=== PATIENT | female | born 1945 | race Caucasian/White ===

== ENCOUNTER → 2020-12-18 | Outpatient (CLI) | payer MEDICARE, BC ==
[~2020-12-18] MED LIST: AMLO2.5T5 PO; ASPI81TA45 PO; BIOT25005 PO; CELE200C PO; CHOL10003 PO; CINSULIN PO; FEXO180T15 PO; FISH1CAP PO; GABA-826 PO; HYDR25TA6 PO; LEVO100T74 PO; LOSA100T14 PO; MULT-449 PO; PRAV40TA2 PO; TRAM50TA2 PO
[2020-12-18 10:32] LABS: BASOPHILS % (AUTO) 1 % (0-1); EOSINOPHILS % (AUTO) 4 % (1-7); LYMPHOCYTES % (AUTO) 31 % (22-44); MEAN CORPUSCULAR HEMOGLOBIN 31.5 pg (27.0-34.8); MEAN CORPUSCULAR HGB CONC 33.4 g/dL (32.4-35.8); MEAN PLATELET VOLUME 7.9 fL (7.4-10.4); MONOCYTES % (AUTO) 9 % (2-9); NEUTROPHILS % (AUTO) 56 % (42-75); PLATELET COUNT 222 x10^3/uL (130-400); RED BLOOD COUNT 4.82 x10^6/uL (3.82-5.3); RED CELL DISTRIBUTION WIDTH 14.2 % (9.6-15.2)
[2020-12-18 10:41] LABS: INTERNATIONAL NORMALIZED RATIO 0.93 (0.93-1.1); MD NO; PROTHROMBIN TIME 9.8 Seconds (9.6-11.5)
[2020-12-18 10:51] LABS: MICROSCOPIC NOT IND
[2020-12-18 12:23] LABS: ALANINE AMINOTRANSFERASE 35 U/L (12-78); ALBUMIN 4.1 g/dL (3.4-5.0); ANION GAP 4 mmol/L (5-15); CALCIUM 8.8 mg/dL (8.5-10.1); CHLORIDE 105 mmol/L (98-107); CREATININE 0.92 mg/dL (0.55-1.02)
[2020-12-18 12:25] LABS: ALKALINE PHOSPHATASE 108 U/L (45-117); BILIRUBIN,TOTAL 0.7 mg/dL (0.2-1.0); TOTAL PROTEIN 8.1 g/dL (6.4-8.2)
== END | disposition home or self-care (01) ==
LOC: STAR 09:20
PROVIDERS: ATTEND Neurological Surgery
DX: Z01.812 Encounter for preprocedural laboratory examination (principal); Z20.822 Contact with and (suspected) exposure to COVID-19; Z01.811 Encounter for preprocedural respiratory examination; Z01.810 Encounter for preprocedural cardiovascular examination; R82.90 Unspecified abnormal findings in urine; R94.31 Abnormal electrocardiogram [ECG] [EKG]; R79.1 Abnormal coagulation profile; M48.061 Spinal stenosis, lumbar region without neurogenic claudication; M54.17 Radiculopathy, lumbosacral region; M43.16 Spondylolisthesis, lumbar region
CPT/HCPCS: 36415; 71046; 80053; 81003; 85025; 85610; 85730; 93005

== ENCOUNTER → 2021-01-01 | Outpatient (CLI) | payer MEDICARE, BC | END | disposition home or self-care (01) | LOC: STAR 09:18 | PROVIDERS: ATTEND Anesthesiology | DX: Z20.822 Contact with and (suspected) exposure to COVID-19 (principal) | CPT/HCPCS: U0003 ==

== ENCOUNTER 2021-01-07 06:45 | Inpatient (IN) | payer MEDICARE, BC ==
[~2021-01-07] VITALS: Ht 157.5 cm; Wt 90.5 kg
[~2021-01-07 06:45] MED LIST changes: +BACITRACIN 50,000 UNIT ONE; +BUPIVACAINE/PF 0.5% ONE; +VANCOMYCIN 1,000 MG ONE
[2021-01-07] MEDS ORDERED: CHLORHEXIDINE 15 ML UDC ONE (07:27)
[2021-01-07] MEDS ORDERED: CHLORHEXIDINE 15 ML UDC PO ONE (07:30)
[2021-01-07] MEDS ORDERED: FENTANYL PF 250 MCG/5ML ONE ×2 (07:44→09:13)
[2021-01-07] MEDS ORDERED: AMIT50TA PO (07:52)
[2021-01-07] MEDS ORDERED: FENTANYL PF 100 MCG/2ML IV PRN (08:30)
[2021-01-07] MEDS ORDERED: LACTATED RINGERS 1,000 ML IV SCH (08:30)
[2021-01-07] MEDS ORDERED: hydrALAzine 20 MG/ML, 1ML IV PRN (08:30)
[2021-01-07] MEDS ORDERED: HALOPERIDOL 5 MG/ML IV PRN (08:30)
[2021-01-07] MEDS ORDERED: OXYcodone 5 MG/5 ML ORAL.SOL UDC PO PRN (08:30)
[2021-01-07] MEDS ORDERED: LIDOCAINE-MPF 1%, 2ML INFIL ONE (08:30)
[2021-01-07] MEDS ORDERED: MEPERIDINE/PF 25MG/0.5ML IVPush PRN (08:30)
[2021-01-07] MEDS ORDERED: PROMETHAZINE 25 MG/ML, 1ML IVPush PRN (08:30)
[2021-01-07] MEDS ORDERED: LABETALOL 5MG/ML, 20ML IV PRN (08:30)
[2021-01-07] MEDS ORDERED: morphine SULFATE 10 MG/ML, 1ML IVPush PRN (08:30)
[2021-01-07] MEDS ORDERED: ACETAMINOPHEN 325 MG TABLET PO PRN (08:30)
[2021-01-07] MEDS ORDERED: ONDANSETRON 2MG/ML, 2ML ONE (09:13)
[2021-01-07] MEDS ORDERED: CEFAZOLIN 1,000 MG ONE (09:13)
[2021-01-07] MEDS ORDERED: PROPOFOL 10 MG/ML, 20ML ONE (09:13)
[2021-01-07] MEDS ORDERED: ROCURONIUM 10MG/ML,5ML ONE (09:13)
[2021-01-07] MEDS ORDERED: GLYCOPYRROLATE 0.2MG/1ML, 5ML ONE (09:13)
[2021-01-07] MEDS ORDERED: DEXAMETHASONE 4 MG/ML, 1ML ONE (09:13)
[2021-01-07] MEDS ORDERED: NEOSTIGMINE 1 MG/ML, 10ML ONE (09:13)
[2021-01-07] MEDS ORDERED: FENTANYL PF 100 MCG/2ML ONE (09:43)
[2021-01-07] MEDS ORDERED: ONDANSETRON 2MG/ML, 2ML IVPush PRN (10:30)
[2021-01-07] MEDS ORDERED: METHOCARBAMOL 1,000 MG in DEXTROSE 5% 100 ML IV ONE (10:30)
[2021-01-07] MEDS ORDERED: LORazepam 1MG TABLET PO PRN (10:30)
[2021-01-07] MEDS ORDERED: DIPHENHYDRAMINE 50 MG CAPSULE PO PRN (10:30)
[2021-01-07] MEDS ORDERED: OXYcodone/APAP 5/325MG TABLET PO PRN (10:30)
[2021-01-07] MEDS ORDERED: BISACODYL 10 MG SUPP PR PRN (10:30)
[2021-01-07] MEDS ORDERED: PHARMACY MAY ADJ FOR RENAL FX MC PRN (10:30)
[2021-01-07] MEDS ORDERED: MAGNESIUM HYDROXIDE 8%, 30ML UDC PO PRN (10:30)
[2021-01-07] MEDS ORDERED: DIPHENHYDRAMINE 50 MG/ML, 1ML IVPush PRN (10:30)
[2021-01-07] MEDS ORDERED: DIPHENHYDRAMINE 50 MG/ML, 1ML IM PRN (10:30)
[2021-01-07] MEDS ORDERED: LABETALOL 5MG/ML, 20ML IVPush PRN (10:30)
[2021-01-07] MEDS ORDERED: OXYcodone 5 MG/5 ML ORAL.SOL UDC ONE (10:40)
[2021-01-07] MEDS ORDERED: HYDROmorphone 1 MG/ML, 1ML INJ ONE (10:40)
[2021-01-07] MEDS: HYDROmorphone 1 MG/ML, 1ML INJ IVPush PRN ×3 (10:45→11:30)
[2021-01-07 12:40] VITALS: BP 136/75
[2021-01-07] MEDS: HYDROmorphone 2MG TABLET PO PRN ×2 (13:42→17:43)
[2021-01-07] MEDS: CEFAZOLIN PMX 1GM/50ML 50 ML IVPB SCH (17:03)
[2021-01-07] MEDS: NS + 20MEQ KCL 1,000 ML IV SCH (17:03)
[2021-01-07 18:55] VITALS: BP 149/87
[2021-01-07] MEDS: AMITRIPTYLINE 50 MG TABLET PO SCH (20:24)
[2021-01-07] MEDS: AMLODIPINE 2.5 MG TABLET PO SCH (20:24)
[2021-01-07] MEDS: PRAVASTATIN 40 MG TABLET PO SCH (20:25)
[2021-01-07] MEDS: HYDROcodone/APAP 5/325 TABLET PO PRN (20:25)
[2021-01-08 00:12] VITALS: BP 146/83
[2021-01-08] MEDS: CEFAZOLIN PMX 1GM/50ML 50 ML IVPB SCH ×2 (00:36→16:59)
[2021-01-08] MEDS: HYDROcodone/APAP 5/325 TABLET PO PRN (00:40)
[2021-01-08] MEDS: NS + 20MEQ KCL 1,000 ML IV SCH ×2 (02:16→14:34)
[2021-01-08 04:11] VITALS: BP 143/81
[2021-01-08 05:47] LABS: BASOPHILS % (AUTO) 0 % (0-1); EOSINOPHILS % (AUTO) 0 % (1-7); LYMPHOCYTES % (AUTO) 13 % (22-44); MEAN CORPUSCULAR HEMOGLOBIN 31.6 pg (27.0-34.8); MEAN CORPUSCULAR HGB CONC 33.9 g/dL (32.4-35.8); MEAN PLATELET VOLUME 7.8 fL (7.4-10.4); MONOCYTES % (AUTO) 9 % (2-9); NEUTROPHILS % (AUTO) 78 % (42-75); PLATELET COUNT 194 x10^3/uL (130-400); RED BLOOD COUNT 4.02 x10^6/uL (3.82-5.3); RED CELL DISTRIBUTION WIDTH 13.9 % (9.6-15.2)
[2021-01-08 05:57] LABS: MD NO
[2021-01-08 06:03] LABS: ALBUMIN 3.1 g/dL (3.4-5.0); ANION GAP 4 mmol/L (5-15); CALCIUM 8.2 mg/dL (8.5-10.1); CHLORIDE 108 mmol/L (98-107)
[2021-01-08] MEDS ORDERED: VANCOMYCIN 1,000 MG ONE (06:19)
[2021-01-08] MEDS ORDERED: BACITRACIN 50,000 UNIT ONE (06:19)
[2021-01-08] MEDS ORDERED: EPINEPHRINE 1 MG/ML, 1ML ONE (06:19)
[2021-01-08] MEDS ORDERED: BUPIVACAINE/PF 0.5% ONE (06:19)
[2021-01-08] MEDS ORDERED: CHLORHEXIDINE 15 ML UDC ONE (06:29)
[2021-01-08] MEDS ORDERED: CHLORHEXIDINE 15 ML UDC PO ONE (06:30)
[2021-01-08] MEDS ORDERED: MIDAZOLAM 1 MG/ML, 2ML ONE (06:48)
[2021-01-08] MEDS ORDERED: FENTANYL PF 250 MCG/5ML ONE (06:48)
[2021-01-08] MEDS ORDERED: DIPHENHYDRAMINE 50 MG/ML, 1ML IVPush PRN (07:00)
[2021-01-08] MEDS ORDERED: OXYcodone 5 MG/5 ML ORAL.SOL UDC PO PRN (07:00)
[2021-01-08] MEDS ORDERED: HYDROmorphone 1 MG/ML, 1ML INJ IVPush PRN (07:00)
[2021-01-08] MEDS ORDERED: LABETALOL 5MG/ML, 20ML IV PRN (07:00)
[2021-01-08] MEDS ORDERED: PROMETHAZINE 25 MG/ML, 1ML IVPush PRN (07:00)
[2021-01-08] MEDS ORDERED: hydrALAzine 20 MG/ML, 1ML IV PRN (07:00)
[2021-01-08] MEDS ORDERED: MEPERIDINE/PF 25MG/0.5ML IVPush PRN (07:00)
[2021-01-08] MEDS ORDERED: HALOPERIDOL 5 MG/ML IV PRN (07:00)
[2021-01-08] MEDS ORDERED: BACITRACIN 50,000 UNIT IRRIG ONE (07:36)
[2021-01-08] MEDS ORDERED: BUPIVACAINE/PF 0.5% INFIL ONE (07:36)
[2021-01-08] MEDS ORDERED: VANCOMYCIN 1,000 MG IM ONE (07:37)
[2021-01-08] MEDS ORDERED: HYDROmorphone 1 MG/ML, 1ML INJ ONE ×2 (07:52→10:38)
[2021-01-08] MEDS: HYDROCHLOROTHIAZIDE 25 MG TABLET PO SCH (09:00)
[2021-01-08] MEDS ORDERED: DEXAMETHASONE 4 MG/ML, 1ML ONE (09:43)
[2021-01-08] MEDS ORDERED: PROPOFOL 10 MG/ML, 20ML ONE (09:43)
[2021-01-08] MEDS ORDERED: SUCCINYLCHOLINE 20 MG/ML, 10ML ONE (09:43)
[2021-01-08] MEDS ORDERED: CEFAZOLIN 1,000 MG ONE (09:43)
[2021-01-08] MEDS ORDERED: ONDANSETRON 2MG/ML, 2ML ONE (09:43)
[2021-01-08] MEDS ORDERED: ROCURONIUM 10MG/ML,5ML ONE (09:43)
[2021-01-08] MEDS ORDERED: NEOSTIGMINE 1 MG/ML, 10ML ONE (09:43)
[2021-01-08] MEDS ORDERED: GLYCOPYRROLATE 0.2MG/1ML, 5ML ONE (09:43)
[2021-01-08] MEDS ORDERED: FENTANYL PF 100 MCG/2ML ONE (10:24)
[2021-01-08] MEDS ORDERED: OXYcodone 5 MG/5 ML ORAL.SOL UDC ONE (10:24)
[2021-01-08] MEDS ORDERED: METHOCARBAMOL 750 MG TABLET ONE ×2 (10:24→22:09)
[2021-01-08] MEDS: FENTANYL PF 100 MCG/2ML IV PRN ×2 (10:29→10:34)
[2021-01-08] MEDS ORDERED: PHARMACY MAY ADJ FOR RENAL FX MC PRN (10:30)
[2021-01-08] MEDS: LORATADINE 10 MG TABLET PO SCH (11:46)
[2021-01-08] MEDS: GABAPENTIN 100 MG CAPSULE PO SCH (11:47)
[2021-01-08] MEDS: MULTIVITAMIN 1 TABLET PO SCH (11:47)
[2021-01-08] MEDS: LEVOTHYROXINE 100 MCG TABLET PO SCH (11:47)
[2021-01-08 13:15] VITALS: BP 108/70
[2021-01-08] MEDS: HYDROcodone/APAP 10/325 MG TABLET PO PRN ×3 (13:39→22:11)
[2021-01-08 19:02] VITALS: BP 111/69
[2021-01-08] MEDS: PRAVASTATIN 40 MG TABLET PO SCH (21:35)
[2021-01-08] MEDS: AMITRIPTYLINE 50 MG TABLET PO SCH (21:35)
[2021-01-08] MEDS: AMLODIPINE 2.5 MG TABLET PO SCH (21:35)
[2021-01-08] MEDS: METHOCARBAMOL 750 MG TABLET PO SCH (22:11)
[2021-01-09 00:27] VITALS: BP 129/78
[2021-01-09] MEDS: NS + 20MEQ KCL 1,000 ML IV SCH ×3 (00:56→20:57)
[2021-01-09] MEDS: CEFAZOLIN PMX 1GM/50ML 50 ML IVPB SCH (00:58)
[2021-01-09] MEDS: HYDROcodone/APAP 10/325 MG TABLET PO PRN ×5 (04:32→22:27)
[2021-01-09 05:14] VITALS: BP 126/76
[2021-01-09] MEDS: ENOXAPARIN 40 MG/0.4 ML SQ SCH (05:15)
[2021-01-09] MEDS: LEVOTHYROXINE 100 MCG TABLET PO SCH (05:15)
[2021-01-09] MEDS: HYDROmorphone 2MG TABLET PO PRN ×2 (05:15→20:28)
[2021-01-09 05:30] LABS: BASOPHILS % (AUTO) 0 % (0-1); EOSINOPHILS % (AUTO) 0 % (1-7); LYMPHOCYTES % (AUTO) 18 % (22-44); MEAN CORPUSCULAR HEMOGLOBIN 31.9 pg (27.0-34.8); MEAN CORPUSCULAR HGB CONC 34.1 g/dL (32.4-35.8); MEAN PLATELET VOLUME 8.1 fL (7.4-10.4); MONOCYTES % (AUTO) 10 % (2-9); NEUTROPHILS % (AUTO) 72 % (42-75); PLATELET COUNT 144 x10^3/uL (130-400); RED BLOOD COUNT 3.09 x10^6/uL (3.82-5.3); RED CELL DISTRIBUTION WIDTH 14.3 % (9.6-15.2)
[2021-01-09 05:46] LABS: MD NO
[2021-01-09] MEDS: METHOCARBAMOL 750 MG TABLET PO SCH ×3 (06:34→22:27)
[2021-01-09 07:55] VITALS: BP 126/75
[2021-01-09] MEDS: GABAPENTIN 100 MG CAPSULE PO SCH (08:04)
[2021-01-09] MEDS: LORATADINE 10 MG TABLET PO SCH (08:05)
[2021-01-09] MEDS: POLYETHYLENE GLYCOL 17 GM PACKET PO SCH (08:06)
[2021-01-09] MEDS: MULTIVITAMIN 1 TABLET PO SCH (08:06)
[2021-01-09] MEDS: HYDROCHLOROTHIAZIDE 25 MG TABLET PO SCH (08:06)
[2021-01-09 12:58] VITALS: BP 120/73
[2021-01-09] MEDS ORDERED: METHOCARBAMOL 750 MG TABLET PO SCH (18:30)
[2021-01-09 19:57] VITALS: BP 110/72
[2021-01-09] MEDS: AMITRIPTYLINE 50 MG TABLET PO SCH (20:28)
[2021-01-09] MEDS: PRAVASTATIN 40 MG TABLET PO SCH (20:28)
[2021-01-09] MEDS: AMLODIPINE 2.5 MG TABLET PO SCH (20:28)
[2021-01-10 01:56] VITALS: BP 112/69
[2021-01-10] MEDS: HYDROcodone/APAP 10/325 MG TABLET PO PRN ×4 (03:09→19:58)
[2021-01-10 05:15] LABS: BASOPHILS % (AUTO) 0 % (0-1); EOSINOPHILS % (AUTO) 1 % (1-7); LYMPHOCYTES % (AUTO) 22 % (22-44); MEAN CORPUSCULAR HEMOGLOBIN 31.9 pg (27.0-34.8); MEAN CORPUSCULAR HGB CONC 33.6 g/dL (32.4-35.8); MONOCYTES % (AUTO) 11 % (2-9); NEUTROPHILS % (AUTO) 66 % (42-75); PLATELET COUNT 138 x10^3/uL (130-400); RED BLOOD COUNT 2.76 x10^6/uL (3.82-5.3); RED CELL DISTRIBUTION WIDTH 14.1 % (9.6-15.2)
[2021-01-10 05:24] LABS: MD NO
[2021-01-10] MEDS: LEVOTHYROXINE 100 MCG TABLET PO SCH (07:03)
[2021-01-10] MEDS: METHOCARBAMOL 750 MG TABLET PO SCH ×3 (07:03→22:51)
[2021-01-10] MEDS: ENOXAPARIN 40 MG/0.4 ML SQ SCH (07:03)
[2021-01-10 07:12] VITALS: BP 118/74
[2021-01-10] MEDS: HYDROCHLOROTHIAZIDE 25 MG TABLET PO SCH (09:00)
[2021-01-10] MEDS: MULTIVITAMIN 1 TABLET PO SCH (09:17)
[2021-01-10] MEDS: LORATADINE 10 MG TABLET PO SCH (09:17)
[2021-01-10] MEDS: GABAPENTIN 100 MG CAPSULE PO SCH (09:19)
[2021-01-10] MEDS: BETHANECHOL 10 MG TABLET PO SCH ×3 (09:19→21:48)
[2021-01-10] MEDS: POLYETHYLENE GLYCOL 17 GM PACKET PO SCH (09:20)
[2021-01-10] MEDS: SENNA/DOCUSATE TABLET PO PRN (09:20)
[2021-01-10] MEDS: NS + 20MEQ KCL 1,000 ML IV SCH ×2 (09:22→23:42)
[2021-01-10] MEDS ORDERED: KETOROLAC 30 MG/1 ML IVPush ONE (11:00)
[2021-01-10] MEDS: DEXAMETHASONE 4 MG/ML, 1ML IVPush SCH ×3 (11:11→23:42)
[2021-01-10] MEDS: HYDROmorphone 2MG TABLET PO PRN ×3 (12:56→21:48)
[2021-01-10 13:29] VITALS: BP 118/73
[2021-01-10 19:53] VITALS: BP 131/76
[2021-01-10] MEDS: PRAVASTATIN 40 MG TABLET PO SCH (19:57)
[2021-01-10] MEDS: AMLODIPINE 2.5 MG TABLET PO SCH (19:58)
[2021-01-10] MEDS: AMITRIPTYLINE 50 MG TABLET PO SCH (19:58)
[2021-01-11 00:47] VITALS: BP 130/76
[2021-01-11] MEDS: HYDROcodone/APAP 10/325 MG TABLET PO PRN ×2 (01:05→05:48)
[2021-01-11] MEDS: HYDROmorphone 2MG TABLET PO PRN ×3 (02:25→14:45)
[2021-01-11] MEDS: DEXAMETHASONE 4 MG/ML, 1ML IVPush SCH ×2 (05:47→11:34)
[2021-01-11] MEDS: LEVOTHYROXINE 100 MCG TABLET PO SCH (05:47)
[2021-01-11] MEDS: ENOXAPARIN 40 MG/0.4 ML SQ SCH (05:48)
[2021-01-11 05:57] LABS: BASOPHILS % (AUTO) 0 % (0-1); EOSINOPHILS % (AUTO) 0 % (1-7); LYMPHOCYTES % (AUTO) 11 % (22-44); MD NO; MEAN CORPUSCULAR HEMOGLOBIN 32.3 pg (27.0-34.8); MEAN CORPUSCULAR HGB CONC 34.3 g/dL (32.4-35.8); MONOCYTES % (AUTO) 4 % (2-9); NEUTROPHILS % (AUTO) 86 % (42-75); PLATELET COUNT 163 x10^3/uL (130-400); RED BLOOD COUNT 2.83 x10^6/uL (3.82-5.3); RED CELL DISTRIBUTION WIDTH 13.4 % (9.6-15.2)
[2021-01-11] MEDS: METHOCARBAMOL 750 MG TABLET PO SCH ×2 (06:29→14:45)
[2021-01-11 07:33] VITALS: BP 96/60
[2021-01-11] MEDS: HYDROCHLOROTHIAZIDE 25 MG TABLET PO SCH (09:00)
[2021-01-11] MEDS: BETHANECHOL 10 MG TABLET PO SCH ×2 (09:14→16:00)
[2021-01-11] MEDS: SENNA/DOCUSATE TABLET PO PRN (09:14)
[2021-01-11] MEDS: POLYETHYLENE GLYCOL 17 GM PACKET PO SCH (09:14)
[2021-01-11] MEDS: MULTIVITAMIN 1 TABLET PO SCH (09:14)
[2021-01-11] MEDS: LORATADINE 10 MG TABLET PO SCH (09:14)
[2021-01-11] MEDS: GABAPENTIN 100 MG CAPSULE PO SCH (09:14)
[2021-01-11] MEDS ORDERED: HYDR2TAB29 PO (11:15)
[2021-01-11] MEDS ORDERED: METH750T87 PO (11:18)
[2021-01-11] MEDS ORDERED: MAGNESIUM CITRATE 300ML ORAL SOL PO PRN (11:30)
[2021-01-11] MEDS: NS + 20MEQ KCL 1,000 ML IV SCH (11:48)
[2021-01-11 15:19] VITALS: BP 150/82
== END 2021-01-11 16:46 | disposition home health service (06) | DRG 454 ==
LOC: ORIP 06:45 → 4NE 12:30
PROVIDERS: ADMIT Neurological Surgery; ATTEND Neurological Surgery
PROC: 0SG10A0 Fusion of 2 or more Lumbar Vertebral Joints with Interbody Fusion Device, Anterior Approach, Anterior Column, Open Approach (ICD-10-PCS; 2021-01-07)
PROC: 0ST20ZZ Resection of Lumbar Vertebral Disc, Open Approach (ICD-10-PCS; 2021-01-07)
PROC: 00UT0KZ Supplement Spinal Meninges with Nonautologous Tissue Substitute, Open Approach (ICD-10-PCS; 2021-01-08)
PROC: 01NB0ZZ Release Lumbar Nerve, Open Approach (ICD-10-PCS; 2021-01-08)
PROC: 01NR0ZZ Release Sacral Nerve, Open Approach (ICD-10-PCS; 2021-01-08)
PROC: 4A11X4G Monitoring of Peripheral Nervous Electrical Activity, Intraoperative, External Approach (ICD-10-PCS; 2021-01-08)
PROC: 8E0W0CZ Robotic Assisted Procedure of Trunk Region, Open Approach (ICD-10-PCS; 2021-01-08)
PROC: 0SG1071 Fusion of 2 or more Lumbar Vertebral Joints with Autologous Tissue Substitute, Posterior Approach, Posterior Column, Open Approach (ICD-10-PCS; principal; 2021-01-08 07:00)
DX: M48.062 Spinal stenosis, lumbar region with neurogenic claudication (principal); R71.0 Precipitous drop in hematocrit; M43.16 Spondylolisthesis, lumbar region; M51.17 Intervertebral disc disorders with radiculopathy, lumbosacral region; R32 Unspecified urinary incontinence; Z72.89 Other problems related to lifestyle; Z88.0 Allergy status to penicillin; Z88.2 Allergy status to sulfonamides; Z88.1 Allergy status to other antibiotic agents; R20.2 Paresthesia of skin
CPT/HCPCS: 36415; 72100; 72131; 80048; 82040; 82962; 85025; 86850; 86900; C1713; G0378; J0171; J0690; J1100; J1170; J1650; J1885; J2250; J2405; J2704; J2710; J3010; J3370; J3480; C1762; C1769; C1781; C1889; J0330; J2800; J7120